=== PATIENT | male | born 1995 | race Caucasian/White ===

== ENCOUNTER 2017-06-21 10:14 | Emergency (ER) | payer OTHER ==
[2017-06-21] MEDS: HYDROCODONE/APAP (5/325) TAB PO (10:48)
[2017-06-21] MEDS: DIPHTH/TET/ACEL PERTUSS (ADULT) 0.5 ML VIAL IM* (10:50)
== END 2017-06-21 13:12 | disposition home or self-care (01) ==
LOC: FTE 10:14
DX: S80.811A Abrasion, right lower leg, initial encounter (principal); S80.812A Abrasion, left lower leg, initial encounter; S70.211A Abrasion, right hip, initial encounter; V89.2XXA Person injured in unspecified motor-vehicle accident, traffic, initial encounter; Z23 Encounter for immunization
CPT/HCPCS: 72170; 73550; 73562-50; 73590; 73610-RT; 90471; 90715; 99284-25